=== PATIENT | female | born 1945 | race African-American/Black ===

== ENCOUNTER 2017-08-01 12:50 | Day surgery (SDC) | payer OTHER ==
[~2017-08-01] VITALS: Ht 152.4 cm; Wt 61.0 kg
[2017-08-01 14:20] VITALS: Ht 152.4 cm; Wt 61.0 kg
[2017-08-01] MEDS ORDERED: OMEPRAZOLE (14:51)
[2017-08-01] MEDS ORDERED: METFORMIN (14:51)
[2017-08-01] MEDS ORDERED: PROPOFOL 40 ML ONE (15:47)
[2017-08-01] MEDS ORDERED: LIDOCAINE 2% (SDV) 5 ML INJ ONE (15:47)
[2017-08-01] MEDS ORDERED: FENTAnyl 50 MCG/ML VIAL ONE (15:50)
[2017-08-01 15:54] VITALS: BP 167/75; PULSE 65; RESP 18
--- NOTE | 2017-08-01 16:25 | OPPN ---
Date/Time of Note Date/Time of Note DATE: 08/01/17 TIME: 16:20 Proc Note GI Procedure Date 08/01/17 Indication: screening/surveillance Pre-procedure Diagnosis Colorectal cancer screening Post-procedure Diagnosis Impression: Diverticulosis left side of the colon, moderate Moderate-sized internal hemorrhoids. Otherwise normal colonoscopy to cecum. Plan: Follow up as scheduled] High fiber diet Annual hemoccult stool testing [Screening colonoscopy in 10 years] . Procedure Performed: Colonoscopy Surgeon ROOSEVELT HERNANDEZ MD See signature line Oil Sprayer none Anesthesia Type: MAC Anesthesiologist: FABIAN SANTANA MD Tourniquet Time none EBL none Transfusion required none Biopsy 1: None Grafts/Implants none Tubes/Drains none Complication(s) none Disposition: home Procedure Description After informed consent, with the patient/relatives understanding the procedure, its indications and potential risks and complications, including but not limited to: Allergic reaction, bleeding, perforation, infection, and after all pertinent questions were answered to the patient's satisfaction, the patient/ relatives signed the witnessed informed consent. Following this, premedication was administered slowly IV push under careful cardiovascular and respiratory monitoring with pulse OXIMETRY, automatic blood pressure, and patient monitor. Once the sedative effect was achieved, the patient was placed in the left lateral decubitus position, digital rectal examination was performed. The colonoscope was then introduced and advanced under visual control throughout all segments of the colon including: the rectum, sigmoid, descending colon, splenic flexure, transverse colon, hepatic flexure, ascending colon and finally reaching the cecum which was clearly identified by transillumination, finger indentation and the ileocecal valve. Careful examination of the mucosa of the lower gastrointestinal tract both on insertion as well as withdrawal of the instrument disclosed the following findings: PREPARATION QUALITY: [Adequate], RECTAL EXAM: The anorectal area was visualized examined and digital rectal examination performed with the following findings: No evidence of perirectal disease, no masses. COLONIC MUCOSA: The mucosa of all segments of the colon was carefully examined and showed the following findings: There is moderate diverticulosis left side of the colon. Moderate-sized internal hemorrhoids. Otherwise the examined mucosa appears within normal limits. There is no evidence of inflammatory changes, polyps or other neoplasms , vascular malformation, or any other abnormality. The instrument was then withdrawn, the patient tolerated the procedure well and was transferred out of the Endoscopy Suite awake and in good condition to continue recovery under observation. Copies To: CC: ROOSEVELT HERNANDEZ MD, MORDO MD Aug 01, 2017 16:25
[2017-08-01 17:01] VITALS: BP 136/70; PULSE 56; RESP 17
== END 2017-08-01 17:21 | disposition home or self-care (01) ==
LOC: GIL 12:50
PROVIDERS: ATTEND Internal Medicine Gastroenterology
DX: Z12.11 Encounter for screening for malignant neoplasm of colon (principal); E11.9 Type 2 diabetes mellitus without complications; I10 Essential (primary) hypertension; E78.5 Hyperlipidemia, unspecified; K64.4 Residual hemorrhoidal skin tags
CPT/HCPCS: 45378; J3010; Z7610